=== PATIENT | female | born 1960 | race Caucasian/White ===

== ENCOUNTER 2017-05-11 16:12 | Emergency (ER) | payer SELFPAY ==
[~2017-05-11] VITALS: Ht 180.3 cm; Wt 68.6 kg
[2017-05-11 20:20] VITALS: BP 131/70
== END 2017-05-11 20:34 | disposition home or self-care (01) ==
LOC: EME 16:12
DX: Z46.59 Encounter for fitting and adjustment of other gastrointestinal appliance and device (principal); C79.31 Secondary malignant neoplasm of brain; I10 Essential (primary) hypertension; Z85.118 Personal history of other malignant neoplasm of bronchus and lung; Z87.891 Personal history of nicotine dependence; Z88.8 Allergy status to other drugs, medicaments and biological substances
CPT/HCPCS: 74000; 99281; 99284; B4087

== ENCOUNTER 2017-05-15 22:10 | Emergency (ER) | payer SELFPAY ==
[~2017-05-15] VITALS: Ht 180.3 cm; Wt 69.9 kg
[2017-05-15 23:18] LABS: HEMATOCRIT 36.4 % (36.0-46.0); MCH 29.7 PG (29.0-34.0); MCHC 34.6 G/DL (30.0-36.0); MCV 85.8 FL (83-99); MEAN PLAT.VOLUME 8.9 uM^3 (9.5-12.4); PLATELET COUNT 368 K/uL (156-360); RBC DIS.WIDTH-CV 12.9 % (11.8-14.6); RBC DIS.WIDTH-SD 39.8 % (39-53); RED BLOOD COUNT 4.24 M/uL (3.80-5.20); WHITE BLOOD COUNT 7.5 K/uL (4.1-10.2)
[2017-05-15 23:24] LABS: PROTHROMBIN TIME 11.6 SEC (10.2-12.9)
[2017-05-15 23:26] LABS: PTT 25.1 SEC (25-37)
[2017-05-15 23:30] LABS: CHLORIDE 104 mEq/L (99-109); POTASSIUM 3.7 mEq/L (3.7-5.4); SODIUM 141 mEq/L (136-147)
[2017-05-15 23:32] LABS: GLUCOSE 154 mg/dL (70-99)
[2017-05-15 23:33] LABS: ANION GAP 13 MEQ/L (2-14)
[2017-05-15 23:34] LABS: TOTAL BILIRUBIN 0.3 mg/dL (0.0-1.0)
[2017-05-15 23:35] LABS: ALKALINE PHOSPHATASE 84 IU/L (3-129)
[2017-05-15 23:36] LABS: GFR ESTIMATE (CALCULATED) > 59 mL/min/
[2017-05-15 23:37] LABS: UREA NITROGEN (BUN) 17 mg/dL (9-23)
[2017-05-15 23:39] LABS: CREATINE KINASE 14 IU/L (1-294); LIPASE 35 U/L (1.0-51.0); TOTAL CK 14 IU/L (1-294); TROP-I INTERPRETATION NEGATIVE; TROPONIN-I 0.01 ng/mL (0.0-0.30)
[2017-05-15 23:46] LABS: CK-MB 0.4 ng/mL (0.0-4.9)
[2017-05-16 00:20] LABS: ADD MIUA? NO; BILIRUBIN NEGATIVE; BLOOD NEGATIVE; COLOR STRAW ((YELLOW)); GLUCOSE (STRIP) NEGATIVE; KETONES NEGATIVE; LEUKOCYTES NEGATIVE; NITRITE NEGATIVE; PROTEIN (STRIP) NEGATIVE; SPECIFIC GRAVITY 1.004 (1.000-1.030); UCUL ADDED? NO; UROBILINOGEN 0.2 MG/DL (0.2-1.0)
[2017-05-16 04:12] VITALS: BP 164/78
== END 2017-05-16 04:24 | disposition home or self-care (01) ==
LOC: EME → EDBD 22:34 → EME 22:34
PROVIDERS: Emergency Medicine
DX: E87.2 Acidosis (principal); E86.0 Dehydration; F41.9 Anxiety disorder, unspecified; C79.31 Secondary malignant neoplasm of brain; Z85.118 Personal history of other malignant neoplasm of bronchus and lung; Z99.81 Dependence on supplemental oxygen; Z92.21 Personal history of antineoplastic chemotherapy; Z87.891 Personal history of nicotine dependence; Z92.3 Personal history of irradiation; Z98.890 Other specified postprocedural states; Z86.718 Personal history of other venous thrombosis and embolism; I10 Essential (primary) hypertension
CPT/HCPCS: 71020; 71275; 74177; 80053; 81003; 82550; 82553; 83605; 83690; 83880; 84484; 85027; 85379; 85610; 85730; 87040; 87186; 87801; 93005; 99281; 99285; J7030